=== PATIENT | male | born 1950 | race Two or more races ===

== ENCOUNTER 2019-08-18 09:40 | Emergency (ER) | payer MEDICARE, MEDICAID ==
[~2019-08-18] VITALS: Ht 172.7 cm; Wt 90.3 kg
[~2019-08-18 09:40] MED LIST: BENAZEPRIL; NORVASC; OMEPRAZOLE
--- NOTE | 2019-08-18 09:45 | NUR ---
PT BIBRA C/O N/V AND DIZZINESS. PT AAOX4, BREATHING EVEN AND UNLABORED, AMBULATORY. PT CONNECTED TO THE MONITOR.
[2019-08-18] MEDS ORDERED: MAG HYDROX/AL HYDROX/SIMETH 30 ML UDC PO ONE (10:30)
[2019-08-18] MEDS ORDERED: PROCHLORPERAZINE EDISYLATE 10 MG/2 ML VIAL IVP ONE (10:30)
[2019-08-18] MEDS ORDERED: diphenhydrAMINE HCL 50 MG/ML VIAL IV ONE (10:30)
[2019-08-18] MEDS ORDERED: ACETAMINOPHEN ES 500 MG TABLET PO ONE (10:30)
[2019-08-18] MEDS ORDERED: FAMOTIDINE/PF INJ 20 MG/2 ML VIAL IV ONE ×2 (10:30→10:35)
[2019-08-18] MEDS ORDERED: LIDOCAINE VISCOUS 2% UD 15 ML UDC MM ONE (10:30)
[2019-08-18] MEDS ORDERED: IV NS 0.9% 1,000 ML BAG IV ONE (10:30)
[2019-08-18] MEDS ORDERED: MAG HYDROX/AL HYDROX/SIMETH 30 ML UDC ONE (10:34)
[2019-08-18] MEDS ORDERED: PROCHLORPERAZINE EDISYLATE 10 MG/2 ML VIAL ONE (10:34)
[2019-08-18] MEDS ORDERED: LIDOCAINE VISCOUS 2% UD 15 ML UDC ONE (10:34)
[2019-08-18] MEDS ORDERED: diphenhydrAMINE HCL 50 MG/ML VIAL ONE (10:34)
[2019-08-18] MEDS ORDERED: ACETAMINOPHEN ES 500 MG TABLET ONE (10:35)
[2019-08-18 10:53] LABS: BASOPHILS # (AUTO) 0.1 /CMM (0.0-0.2); BASOPHILS % (AUTO) 0.9 % (0.0-2.0); EOSINOPHILS % (AUTO) 0.3 % (0.0-6.0); HEMATOCRIT 37 % (39-51); HEMOGLOBIN 12.5 g/dL (13.5-17.5); LYMPHOCYTES # (AUTO) 2.4 /CMM (0.8-4.8); LYMPHOCYTES % (AUTO) 21.1 % (20.0-44.0); MEAN CORPUSCULAR HGB CONC 34 g/dl (31.0-36.0); MEAN CORPUSCULAR VOLUME 91 fL (80-96); MONOCYTES # (AUTO) 0.4 /CMM (0.1-1.30); MONOCYTES % (AUTO) 3.3 % (2.0-12.0); NEUTROPHILS # (AUTO) 8.3 /CMM (1.8-8.9); NEUTROPHILS % (AUTO) 74.4 % (43.0-81.0); PLATELET COUNT (AUTO) 109 /CMM (150-450); RED BLOOD CELL COUNT(AUTO) 4.08 MIL/uL (4.5-6.0); WHITE BLOOD COUNT (AUTO) 11.2 K/uL (4.3-11.0)
[2019-08-18 10:59] LABS: CALCIUM, SERUM 8.8 mg/dL (8.5-10.1); CREATININE 1.2 mg/dL (0.6-1.3); POTASSIUM 4.6 mmol/L (3.5-5.1)
[2019-08-18 11:05] LABS: ALBUMIN 3.1 g/dL (3.4-5.0); BILIRUBIN,DIRECT 0.2 mg/dL (0.0-0.2); BILIRUBIN,TOTAL 1.1 mg/dL (0.2-1.0); TOTAL PROTEIN, SERUM 6.2 g/dL (6.4-8.2)
--- NOTE | 2019-08-18 13:39 | NUR ---
Patient discharged to home in stable condition. Written and verbal after care instructions given. Patient verbalizes understanding of instruction.IV removed. Catheter intact and site benign. Pressure and 4x4 applied to site. No bleeding noted.
[2019-08-18 13:40] VITALS: BP 164/87
== END 2019-08-18 13:40 | disposition home or self-care (01) ==
LOC: ER 09:41
DX: J20.9 Acute bronchitis, unspecified (principal); R51 Headache; K29.70 Gastritis, unspecified, without bleeding; K21.9 Gastro-esophageal reflux disease without esophagitis; I10 Essential (primary) hypertension; E78.5 Hyperlipidemia, unspecified; Z98.890 Other specified postprocedural states; Z79.899 Other long term (current) drug therapy
CPT/HCPCS: 36415; 71045; 80048; 80076; 83690; 84484; 85025; 87804 ×2; 96361; 96374; 96375; 99284; J0780; J1200; J3490; J7030